=== PATIENT | female | born 1985 | race Caucasian/White ===

== ENCOUNTER 2016-04-04 13:05 | Emergency (ER) | payer BC ==
[2016-04-04 14:01] LABS: Urine Bilirubin Negative (Negative); Urine Glucose Negative (Negative); Urine Nitrite Negative (Negative)
[2016-04-04 14:06] LABS: Hematocrit 42 % (35-47); Hemoglobin 13.7 g/dl (12.0-16.0); Mean Corpuscular HGB Conc 33 g/dl (31-36); Mean Corpuscular Hemoglobin 26 pg (27-31); Mean Corpuscular Volume 78 fL (80-97); Mean Platelet Volume 8 um3 (7.4-10.4); Red Blood Count 5.35 10^6/ul (4.0-5.4); Red Cell Distribution Width 15 % (10.5-15); White Blood Count 9.9 10^3/ul (3.5-10.8)
[2016-04-04 14:15] LABS: Benzodiazepine Urine Screen None Detected (None Detect)
[2016-04-04 14:24] LABS: ALT 12 U/L (7-52); AST 14 U/L (13-39); Albumin 4.3 g/dL (3.2-5.2); Alkaline Phosphatase 82 U/L (34-104); Anion Gap 8 mmol/L (2-11); BUN/Creatinine Ratio 14.7 (8-20); Blood Urea Nitrogen 11 mg/dL (6-24); CO2 Carbon Dioxide 22 mmol/L (22-32); Calcium 9.4 mg/dL (8.6-10.3); Chloride 106 mmol/L (101-111); EGFR African American 116.7 (>60); EGFR Non-African American 90.7 (>60); Globulin 2.9 g/dL (2-4); Glucose 93 mg/dL (70-100); Potassium 3.8 mmol/L (3.5-5.0); Sodium 136 mmol/L (133-145); Total Protein 7.2 g/dL (6.4-8.9)
[2016-04-04 14:50] LABS: Acetaminophen < 15 mcg/mL; Alcohol < 10 mg/dL (<10); Salicylate < 2.50 mg/dL (<30)
[2016-04-04 15:00] LABS: TSH (Thyroid Stimulating Horm) 1.32 mcIU/mL (0.34-5.60)
[2016-04-04 15:27] VITALS: BP 163/107
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
[2016-04-04] MEDS ORDERED: Acetaminophen TAB* 325 MG PO PRN (16:24)
[2016-04-04] MEDS ORDERED: Acetaminophen TAB* 325 MG ONE (16:27)
[2016-04-04] MEDS ORDERED: Nicotine Inhaler* 10 MG AMP ONE (17:27)
[2016-04-04] MEDS ORDERED: Mouth Piece, Nicotine* 1 EACH CARTRIDGE ONE (17:27)
[2016-04-04] MEDS: Citalopram TAB* 20 MG PO SCH (18:24)
[2016-04-04] MEDS: Carisoprodol TAB* 350 MG PO SCH (18:25)
[2016-04-04] MEDS: hydrOXYzine HCL TAB* 10 MG PO SCH (18:34)
[2016-04-04] MEDS ORDERED: Nicotine Inhaler* 10 MG AMP Q2H PRN CRAVING INH (20:00)
[2016-04-04] MEDS ORDERED: Mouth Piece, Nicotine* 1 EACH CARTRIDGE INH ONE (20:00)
[2016-04-05] MEDS ORDERED: LORazepam TAB(*) 1 MG PO ONE (02:46)
[2016-04-05] MEDS: Carisoprodol TAB* 350 MG PO SCH (08:22)
[2016-04-05] MEDS: Citalopram TAB* 20 MG PO SCH (08:22)
[2016-04-05] MEDS: hydrOXYzine HCL TAB* 10 MG PO SCH (08:22)
[2016-04-05 11:49] LABS: Syphilis Index < 0.1 Index
== END 2016-04-05 08:23 | disposition short-term general hospital (02) ==
LOC: ED 13:05
DX: F32.9 Major depressive disorder, single episode, unspecified (principal); F41.9 Anxiety disorder, unspecified; F17.210 Nicotine dependence, cigarettes, uncomplicated
CPT/HCPCS: 36415; 80053; 80307; 80320; 80329; 81003; 84443; 85025; 86592; 93005; 99284; A9270-GY; G0480

== ENCOUNTER 2016-07-12 10:39 | Emergency (ER) | payer BC ==
[2016-07-12 11:33] VITALS: BP 113/75
--- NOTE | 2016-07-12 13:33 | RAD ---
INDICATION: Right knee injury. TECHNIQUE: 4 views of the right knee were obtained. FINDINGS: The bones are normal alignment. No joint effusion or acute fracture is seen. There is a sclerotic lesion in the posterior distal metaphysis of the femur measuring 3.1 x 1.7 cm in size. 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 IMPRESSION: 1. NO EVIDENCE FOR ACUTE FRACTURE. 2. SCLEROTIC LESION IN THE DISTAL FEMUR LIKELY REPRESENTING A BENIGN FIBRO-OSSEOUS LESION. RECOMMEND A FOLLOW-UP X-RAY OF THE RIGHT KNEE IN 4 MONTHS TIME TO DEMONSTRATE STABILITY.
[2016-07-12] MEDS ORDERED: Naproxen TAB* 250 MG PO ONE (14:14)
== END 2016-07-12 14:35 | disposition home or self-care (01) ==
LOC: UCEAST 10:39
DX: S80.01XA Contusion of right knee, initial encounter (principal); S83.91XA Sprain of unspecified site of right knee, initial encounter; W19.XXXA Unspecified fall, initial encounter; Y93.9 Activity, unspecified; Y92.9 Unspecified place or not applicable; D16.9 Benign neoplasm of bone and articular cartilage, unspecified; F41.8 Other specified anxiety disorders; Z88.1 Allergy status to other antibiotic agents; Z88.8 Allergy status to other drugs, medicaments and biological substances; F12.90 Cannabis use, unspecified, uncomplicated; F17.210 Nicotine dependence, cigarettes, uncomplicated
CPT/HCPCS: 99212; G0463

== ENCOUNTER 2017-06-09 08:23 | Emergency (ER) | payer BC ==
[2017-06-09 08:42] VITALS: BP 111/75
--- NOTE | 2017-06-09 09:02 | UC ---
Ear Complaint HPI - HPI Summary HPI Summary: Patient presents for re-evaluation of bilateral Otitis media, she has completed a course of zpk and continues to experience plugging of her ears. She also states she was seen for right sided neck and shoulder pain, that developed after she moved. She was prescribed Robaxin for the muscle spasms and it caused GI upset and she states that it really was not helping, She continues to complain of right sided neck and shoulder pain that is worse when she is sweeping, but also continues afterward. She denies any midline tenderness, numbness or tingling of her arms. She is also taking Aleve twice daily as an anti-inflammatory. - History of Current Complaint Chief Complaint: UCUpperExtremity Stated Complaint: EAR PAIN NECK PAIN Time Seen by Provider: 06/09/17 08:31 Hx Obtained From: Patient Hx Last Menstrual Period: 04/19/2017 Onset/Duration: Gradual Onset, Lasting Days Severity Initially: Moderate Severity Currently: Moderate Pain Intensity: 2 Aggravating Factors: Other - previous otitis media. - Allergies/Home Medications Allergies/Adverse Reactions: Allergies Allergy/AdvReac Type Severity Reaction Status Date / Time amoxicillin [From Augmentin] Allergy Hives Verified 06/09/17 08:33 clavulanic acid Allergy Hives Verified 06/09/17 08:33 [From Augmentin] esomeprazole [From Nexium] Allergy GI Upset Verified 06/09/17 08:33 varenicline [From Chantix] Allergy anaph Verified 06/09/17 08:33 PMH/Surg Hx/FS Hx/Imm Hx Previously Healthy: Yes - Surgical History Surgical History: None - Family History Known Family History: Positive: None, Hypertension, Diabetes, Other - hyperlipidemia Family History: hyperlipidemia - Social History Occupation: Employed Full-time Lives: Alone Alcohol Use: Rare Substance Use Type: Marijuana Substance Use Comment - Amount & Last Used: Occasionally Smoking Status (MU): Light Every Day Tobacco Smoker Type: Cigarettes Amount Used/How Often: 5 CIG/DAY 6+ YEARS Length of Time of Smoking/Using Tobacco: 4+ years Have You Smoked in the Last Year: Yes Household Exposure Type: Cigarettes - Immunization History Most Recent Influenza Vaccination: 01/08 Most Recent Tetanus Shot: 2012 Review of Systems Constitutional: Negative Skin: Negative Eyes: Negative ENT: Negative, Other - ear plugging Respiratory: Negative Cardiovascular: Negative Gastrointestinal: Negative Genitourinary: Negative Motor: Other - right sided neck and shoulder pain. Neurovascular: Negative Musculoskeletal: Negative Neurological: Negative Psychological: Negative Is Patient Immunocompromised?: No All Other Systems Reviewed And Are Negative: Yes Physical Exam Triage Information Reviewed: Yes Appearance: Well-Appearing Vital Signs: Initial Vital Signs Temp 97.1 F 06/09/17 08:35 Pulse 116 06/09/17 08:35 Resp 16 06/09/17 08:35 BP 111/75 06/09/17 08:35 Pulse Ox 99 06/09/17 08:35 Vital Signs Reviewed: Yes Eye Exam: Normal ENT: Positive: Other - bilateral TM's pink without effusion, perforations, or otorrhea. Neck: Positive: Other: - reproducible tenderness right of C6-7, and tenderness of the rhomdoid muslce. upper extermity strenth testing equal 5/5. Vascular exam strong radial pulses, capillary refill less than 3 seconds, neuro-no dificits to touch distally. Respiratory Exam: Normal Cardiovascular Exam: Normal Musculoskeletal: Positive: Other: - see above Neurological Exam: Normal Skin Exam: Normal Ear Complaint Course/Dx - Course Course Of Treatment: Patient presents with complaints of continued plugging of ears s/p otitis media, pain resolved, symtpoms consistent most likley with eustachian tube dysfunction, continue with deongestants. She also has continued muscle spasms from strain unresponsive to Robaxin which caused GI upset. She was given a different medication for muscle spasms, Soma one tablet every six hours as needed, and continue with Aleve. She verbalized understanding of and was in agreement with the discharge plan. - Differential Dx/Diagnosis Differential Diagnosis/HQI/PQRI: Other - Eustachian tube dysfunction cervical strain muscle spasam Provider Diagnoses: Eustachian tube dysfunction. cervical stain. muscle spasam Discharge - Sign-Out/Discharge Documenting (check all that apply): Discharge - Discharge Plan Condition: Stable Disposition: HOME Prescriptions: Carisoprodol TAB* [Soma TAB*] 350 mg PO Q6H PRN #14 tab MDD 4 PRN Reason: muscle spasam Patient Education Materials: Earache (ED), Neck Pain (ED) Referrals: Daysi Aguila MD [Primary Care Provider] - Additional Instructions: Patient will continue taking decongestants as prescribed. - Billing Disposition and Condition Condition: STABLE Disposition: HOME
== END 2017-06-09 09:01 | disposition home or self-care (01) ==
LOC: UCEAST 08:23
DX: H69.93 Unspecified Eustachian tube disorder, bilateral (principal); S16.1XXA Strain of muscle, fascia and tendon at neck level, initial encounter; X58.XXXA Exposure to other specified factors, initial encounter; Y93.E6 Activity, residential relocation; Y92.9 Unspecified place or not applicable; M62.838 Other muscle spasm; Z88.1 Allergy status to other antibiotic agents; Z88.0 Allergy status to penicillin; Z88.8 Allergy status to other drugs, medicaments and biological substances; F17.210 Nicotine dependence, cigarettes, uncomplicated
CPT/HCPCS: 99212; G0463

== ENCOUNTER 2018-07-22 07:50 | Emergency (ER) | payer BC ==
[2018-07-22 08:05] VITALS: BP 144/97
--- NOTE | 2018-07-22 08:42 | UC ---
UC General HPI - HPI Summary HPI Summary: STates she worked at [employer] all weekend for [employer] - noticed her back starting to have pain but had to continue working long shifts carrying and lifting all weekend. Now with excrutiating pain, hard to get comfortable all night long. No loss in bowel or bladder. No numbness or tingling down either leg. No lower ext. weakness. Meds: reviewed - History of Current Complaint Chief Complaint: UCBackPain Stated Complaint: BACK INJURY Time Seen by Provider: 07/22/18 08:26 Hx Last Menstrual Period: today Pain Intensity: 10 - Allergy/Home Medications Allergies/Adverse Reactions: Allergies Allergy/AdvReac Type Severity Reaction Status Date / Time amoxicillin [From Augmentin] Allergy Hives Verified 07/22/18 08:05 clavulanic acid Allergy Hives Verified 07/22/18 08:05 [From Augmentin] esomeprazole [From Nexium] Allergy GI Upset Verified 07/22/18 08:05 varenicline [From Chantix] Allergy anaph Verified 07/22/18 08:05 PMH/Surg Hx/FS Hx/Imm Hx Previously Healthy: Yes - Surgical History Surgical History: None - Family History Known Family History: Positive: None, Hypertension, Diabetes, Other - hyperlipidemia Family History: hyperlipidemia - Social History Alcohol Use: Rare Substance Use Type: None Substance Use Comment - Amount & Last Used: Occasionally Smoking Status (MU): Former Smoker Type: Cigarettes Amount Used/How Often: 5 CIG/DAY 6+ YEARS Length of Time of Smoking/Using Tobacco: 4+ years Have You Smoked in the Last Year: Yes Household Exposure Type: Cigarettes - Immunization History Most Recent Influenza Vaccination: 01/08 Most Recent Tetanus Shot: 2012 Review of Systems All Other Systems Reviewed And Are Negative: Yes Physical Exam Triage Information Reviewed: Yes Vital Signs: Initial Vital Signs Temp 97.4 F 07/22/18 07:58 Pulse 91 07/22/18 07:58 Resp 21 07/22/18 07:58 BP 144/97 07/22/18 07:58 Pulse Ox 97 07/22/18 07:58 Vital Signs Reviewed: Yes Musculoskeletal: Positive: Other: - b/l paraspinal tenderness, fullness more prominent on left, limited ROM due to pain. Strength equal and symmetric Course/Dx - Course Course Of Treatment: This is a 32 yr old with a PMHx of low back pain, who overdid it this weekend and now with worsening low back pain Assessment Low back strain Discussed low yield for imaging at this point Plan Recommend starting Skelaxin as needed for muscle spasm Recommend naproxen 2x/day for back pain - take with food Can continue tylenol as directed Can alternate heat and ice to low back Continue gentle stretches and movements Recommend follow up with Dr. Walter and Physical Therapy If symptoms persist or worsen, recommend follow up with Dr. Walter or your PCP - Diagnoses Provider Diagnosis: Low back pain Discharge - Sign-Out/Discharge Documenting (check all that apply): Patient Departure All imaging exams completed and their final reports reviewed: No Studies - Discharge Plan Condition: Fair Disposition: HOME Prescriptions: Metaxalone TAB* [Skelaxin TAB*] 800 mg PO TID PRN #20 tab PRN Reason: Spasms Naproxen [Naproxen 500 mg tab] 500 mg PO BID #30 tablet. Patient Education Materials: Low Back Strain (ED) Forms: *Work Release Referrals: Daysi Aguila MD [Primary Care Provider] - Additional Instructions: Recommend starting Skelaxin as needed for muscle spasm Recommend naproxen 2x/day for back pain - take with food Can continue tylenol as directed Can alternate heat and ice to low back Continue gentle stretches and movements Recommend follow up with Dr. Walter and Physical Therapy If symptoms persist or worsen, recommend follow up with Dr. Walter or your PCP - Billing Disposition and Condition Condition: FAIR Disposition: Home
== END 2018-07-22 08:52 | disposition home or self-care (01) ==
LOC: UCEAST 07:50
DX: M54.5 Low back pain (principal); Z88.0 Allergy status to penicillin; Z88.8 Allergy status to other drugs, medicaments and biological substances; Z87.891 Personal history of nicotine dependence
CPT/HCPCS: 99212; G0463

== ENCOUNTER 2018-07-23 09:02 | Emergency (ER) | payer BC ==
[2018-07-23 09:16] VITALS: BP 153/93
--- NOTE | 2018-07-23 09:45 | UC ---
General HPI - HPI Summary HPI Summary: Was seen in UC here by me yesterday. No improvement in symptoms despite skelakin and naproxen. Tried to go to work today and had shooting pain down both legs. No bowel or bladder issues. WOrried about being able to work in this amount of pain. - History of Current Complaint Chief Complaint: UCBackPain Stated Complaint: RECHECK OF BACK PAIN Time Seen by Provider: 07/23/18 09:36 Hx Last Menstrual Period: now Pain Intensity: 10 - Allergy/Home Medications Allergies/Adverse Reactions: Allergies Allergy/AdvReac Type Severity Reaction Status Date / Time amoxicillin [From Augmentin] Allergy Hives Verified 07/22/18 08:05 clavulanic acid Allergy Hives Verified 07/22/18 08:05 [From Augmentin] esomeprazole [From Nexium] Allergy GI Upset Verified 07/22/18 08:05 varenicline [From Chantix] Allergy anaph Verified 07/22/18 08:05 PMH/Surg Hx/FS Hx/Imm Hx Previously Healthy: Yes - Surgical History Surgical History: None - Family History Known Family History: Positive: None, Hypertension, Diabetes, Other - hyperlipidemia Family History: hyperlipidemia - Social History Alcohol Use: Rare Substance Use Type: None Substance Use Comment - Amount & Last Used: Occasionally Smoking Status (MU): Former Smoker Type: Cigarettes Amount Used/How Often: 5 CIG/DAY 6+ YEARS Length of Time of Smoking/Using Tobacco: 4+ years Have You Smoked in the Last Year: Yes Household Exposure Type: Cigarettes - Immunization History Most Recent Influenza Vaccination: 01/08 Most Recent Tetanus Shot: 2012 Review of Systems All Other Systems Reviewed And Are Negative: Yes Physical Exam Triage Information Reviewed: Yes Appearance: Well-Appearing Vital Signs: Initial Vital Signs Temp 98.2 F 07/23/18 09:11 Pulse 94 07/23/18 09:11 Resp 18 07/23/18 09:11 BP 153/93 07/23/18 09:11 Pulse Ox 98 07/23/18 09:11 Musculoskeletal: Positive: Other: - paraspinal tenderness in lumbar region, limited ROM Diagnostics - Radiology lumbar xray Radiology Interpretation Completed By: Radiologist Summary of Radiographic Findings: degenerative spondylosis, facet joint osteoarthritis Course/Dx - Course Course Of Treatment: This is a 32 yr old with low back pain, worsened despite naproxen and skelaxin Lumbar film - no acute findings Plan Percocet as prescribed Hold Naproxen for today COntinue Skelaxin Follow up with PCP and physical therapy - Diagnoses Provider Diagnosis: Low back pain Discharge - Sign-Out/Discharge Documenting (check all that apply): Patient Departure All imaging exams completed and their final reports reviewed: Yes - Discharge Plan Condition: Fair Disposition: HOME Prescriptions: oxyCODONE/Acetamin 5/325 MG* [Percocet 5/325 TAB*] 1 tab PO Q6H PRN #15 tab MDD 4 tab PRN Reason: Pain Forms: *Work Release Referrals: Daysi Aguila MD [Primary Care Provider] - Additional Instructions: HOld Naproxen dose for today in setting of getting Toradol in urgent care - Billing Disposition and Condition Condition: FAIR Disposition: Home
[2018-07-23] MEDS: Ketorolac INJ* 60 MG/2 ML VIAL IM ONE (10:13)
== END 2018-07-23 10:50 | disposition home or self-care (01) ==
LOC: UCEAST 09:02
DX: M54.5 Low back pain (principal); Z88.0 Allergy status to penicillin; Z88.8 Allergy status to other drugs, medicaments and biological substances; Z87.891 Personal history of nicotine dependence
CPT/HCPCS: 72110; 99212; G0463; J1885